=== PATIENT | female | born 1960 | race Caucasian/White ===

== ENCOUNTER 2018-02-22 11:07 | Emergency (ER) | payer OTHER ==
[~2018-02-22] VITALS: Ht 162.6 cm; Wt 73.0 kg
--- NOTE | 2018-02-22 11:12 | NUR ---
pt bibra from work to er bed 09. syncopal episode at work. pt states been dizzy x 1 week now. denies chest pain gowned and placed on monitor. vss. awaiting md capone.
--- NOTE | 2018-02-22 11:14 | NUR ---
IV LINE STARTED BLOOD DRAWN ASND SENT TO LAB.
--- NOTE | 2018-02-22 11:26 | NUR ---
dr duke at bedside for eval.
[2018-02-22] MEDS ORDERED: IV NS 0.9% 1,000 ML BAG IV ONE (11:30)
[2018-02-22 11:39] LABS: BASOPHILS % (AUTO) 0.7 % (0.0-2.0); EOSINOPHILS % (AUTO) 1.1 % (0.0-6.0); HEMATOCRIT 47 % (33-45); HEMOGLOBIN 16.3 g/dL (11.5-14.8); LYMPHOCYTES # (AUTO) 1.9 /CMM (0.8-4.8); LYMPHOCYTES % (AUTO) 27.5 % (20.0-44.0); MEAN CORPUSCULAR HEMOGLOBIN 29 PG (26.0-33.0); MEAN CORPUSCULAR HGB CONC 35 g/dl (31.0-36.0); MEAN CORPUSCULAR VOLUME 84 fL (82-100); MONOCYTES # (AUTO) 0.4 /CMM (0.1-1.30); MONOCYTES % (AUTO) 5.2 % (2.0-12.0); NEUTROPHILS # (AUTO) 4.7 /CMM (1.8-8.9); NEUTROPHILS % (AUTO) 65.5 % (43.0-81.0); PLATELET COUNT (AUTO) 246 /CMM (150-450); RDW COEFFICIENT OF VARIATION 11.8 (11.5-15.0); RED BLOOD CELL COUNT(AUTO) 5.63 MIL/uL (4.0-5.2); WHITE BLOOD COUNT (AUTO) 7.1 K/uL (4.3-11.0)
--- NOTE | 2018-02-22 11:42 | NUR ---
radiology at bedside for chest xray.
[2018-02-22 11:49] LABS: CALCIUM, SERUM 8.9 mg/dL (8.5-10.1); CARBON DIOXIDE 28 mmol/L (21-32); CHLORIDE 104 mmol/L (98-107); CREATININE 0.7 mg/dL (0.6-1.3); GLUCOSE 185 mg/dL (74-106); POTASSIUM 3.7 mmol/L (3.5-5.1); SODIUM SERUM 137 mmol/L (136-145); UREA NITROGEN, BLOOD 13 mg/dL (7-18)
[2018-02-22 11:55] LABS: ALANINE AMINOTRANSFERASE 24 U/L (12-78); ALBUMIN 3.7 g/dL (3.4-5.0); ALKALINE PHOSPHATASE 84 U/L (46-116); ASPARTATE AMINOTRANSFERASE 19 U/L (15-37); BILIRUBIN,DIRECT 0.1 mg/dL (0.0-0.2); BILIRUBIN,TOTAL 0.9 mg/dL (0.2-1.0); TOTAL PROTEIN, SERUM 7.5 g/dL (6.4-8.2)
[2018-02-22 11:57] LABS: TROPONIN I < 0.017 ng/mL (0.00-0.056)
--- NOTE | 2018-02-22 11:58 | NUR ---
pt to radiology for head ct scan via wheelchair.
--- NOTE | 2018-02-22 12:45 | NUR ---
[facility] WAITING FOR CALL BACK FROM [facility]ENATH PHYSICIAN.
--- NOTE | 2018-02-22 13:58 | NUR ---
RECEIVED A CALL FROM [employer] REG[employer] ASSOCIATE MAKENNA WITH TRANSFER INFORMATION: PT HAS BEEN ACCEPTED TO [facility] UNDER DR ZAMBRANO. NUMBER FOR NURSING REPORT IS [phone]. [facility] HAS AN ETA OF [id number]
[2018-02-22 14:01] VITALS: BP 130/76
--- NOTE | 2018-02-22 14:15 | NUR ---
REPORT GIVEN TO RAGHU MARIO AT [facility]. PT AWAITING AMBULANCE TRANSPORT.
--- NOTE | 2018-02-22 14:52 | NUR ---
TRANSFERED TO [facility]. STABLE CONDITION.
== END 2018-02-22 14:54 | disposition short-term general hospital (02) ==
LOC: ER 11:09
DX: R55 Syncope and collapse (principal); E11.9 Type 2 diabetes mellitus without complications; I10 Essential (primary) hypertension; R42 Dizziness and giddiness; Z88.8 Allergy status to other drugs, medicaments and biological substances
CPT/HCPCS: 36415; 70450; 71045; 80048; 80076; 84484; 85025; 93005; 96360; 99285; A4606; J7030; Z7610